=== PATIENT | male | born 1965 | race African-American/Black ===

== ENCOUNTER 2017-09-27 13:30 | Inpatient (IN) | payer SELFPAY ==
[2017-09-27] MEDS ORDERED: IBUPROFEN 600 MG TABLET PO ONE (16:00)
--- NOTE | 2017-09-27 16:05 | ER Document Report ---
ED Hand/Wrist Injury - General Chief Complaint: Hand Swelling Stated Complaint: LEFT HAND PAIN Time Seen by Provider: 09/27/17 15:45 Mode of Arrival: Ambulatory Information source: Patient Notes: 51-year-old male presented ED for complaint of left hand pain and swelling for the last 3 days. He states he does not remember any injuries but the pain is gradually become more and more painful. 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 He denies any history of arthritis or gout. States mother has arthritis but does not know of any family members with gout. He is alert and oriented pupils equal and react to light, speaks with a even full sentences. Walks with a even steady gait. TRAVEL OUTSIDE OF THE [place] IN LAST 30 DAYS: No - HPI Injury to: Hand, Index finger, Middle finger Onset: Other - 3 days Timing: Still present, Worse Quality of pain: Sharp, Throbbing Severity: Moderate Pain Level: 4 Context: Swelling, Other - Patient denies any injury - Related Data Allergies/Adverse Reactions: No Known Allergies Allergy (Verified 04/16/15 12:49) Past Medical History - General Information source: Patient - Social History Smoking Status: Current Every Day Smoker Cigarette use (# per day): Yes - 1/2 ppd Chew tobacco use (# tins/day): No Smoking Education Provided: Yes - 4 min Frequency of alcohol use: Social Drug Abuse: None Occupation: Construction Lives with: Family - Brother Family History: Reviewed & Not Pertinent Patient has suicidal ideation: No Patient has homicidal ideation: No - Past Medical History Cardiac Medical History: Reports: Hx Hypertension Pulmonary Medical History: Reports: None EENT Medical History: Reports: None Neurological Medical History: Reports: None Endocrine Medical History: Reports: None Renal/ Medical History: Reports: None Malignancy Medical History: Reports None GI Medical History: Reports: None Musculoskeltal Medical History: Reports Hx Musculoskeletal Trauma Skin Medical History: Reports None Psychiatric Medical History: Reports: None Traumatic Medical History: Reports: None Infectious Medical History: Reports: None Past Surgical History: Reports: Hx Orthopedic Surgery - left knee - Immunizations Immunizations up to date: Yes Hx Diphtheria, Pertussis, Tetanus Vaccination: Yes Review of Systems - Review of Systems Constitutional: No symptoms reported EENT: No symptoms reported Cardiovascular: No symptoms reported Respiratory: No symptoms reported Gastrointestinal: No symptoms reported Genitourinary: No symptoms reported Male Genitourinary: No symptoms reported Musculoskeletal: Other - Left hand pain pain swelling and warmth Skin: No symptoms reported Hematologic/Lymphatic: No symptoms reported Neurological/Psychological: No symptoms reported -: Yes All other systems reviewed and negative Physical Exam - Vital signs Vitals: Temp Pulse Resp BP Pulse Ox 98.8 F 69 17 179/92 H 96 09/27/17 13:48 09/27/17 13:48 09/27/17 13:48 09/27/17 13:48 09/27/17 13:48 Interpretation: Normal - General General appearance: Appears well, Alert - HEENT Head: Normocephalic, Atraumatic Eyes: Normal Pupils: PERRL - Respiratory Respiratory status: No respiratory distress Chest status: Nontender Breath sounds: Normal Chest palpation: Normal - Cardiovascular Rhythm: Regular Heart sounds: Normal auscultation Murmur: No - Abdominal Inspection: Normal Distension: No distension Bowel sounds: Normal Tenderness: Nontender Organomegaly: No organomegaly - Back Back: Normal, Nontender - Extremities General upper extremity: Normal temperature General lower extremity: Normal inspection, Nontender, Normal color, Normal ROM , Normal temperature, Normal weight bearing. No: Yoni's sign Hand: Tender, No evidence of human bite, No evidence of FB, Swelling, Other - Tenderness warm erythematous second and third Mcp - Neurological Neuro grossly intact: Yes Cognition: Normal Orientation: AAOx4 [place] Coma Scale Eye Opening: Spontaneous [place] Coma Scale Verbal: Oriented [place] Coma Scale Motor: Obeys Commands [place] Coma Scale Total: 15 Speech: Normal Motor strength normal: LUE, RUE, LLE, RLE Sensory: Normal - Psychological Associated symptoms: Normal affect, Normal mood - Skin Skin Temperature: Warm Skin Moisture: Dry Skin Color: Normal Course - Re-evaluation Re-evalutation: 09/27/17 16:28 X-ray done of the left hand due to the redness swelling and pain to the hand. Patient states he did not injure the hand he remembers no puncture wounds remembers no insect bites. X-ray does show a possible osteomyelitis of the second MCP according to the radiologist Dr. Ruff. Will obtain blood work cultures and then consult with orthopedics. 09/27/17 18:[address] Alvarado for the possible osteomyelitis of the second metacarpal of the left hand. He states this is not a simple injury infection osteomyelitis and this would need to be worked up by the hospitalist. He recommended starting the patient on Rocephin and vancomycin and get an MRI with contrast of the hand and to admit the patient to hospitalist. Dr. Forrester he states he will come to the ER and see the patient. - Vital Signs Vital signs: Temp Pulse Resp BP Pulse Ox 98.8 F 69 17 179/92 H 96 09/27/17 13:48 09/27/17 13:48 09/27/17 13:48 09/27/17 13:48 09/27/17 13:48 - Laboratory Result Diagrams: 09/27/17 16:35 09/27/17 16:35 Laboratory results interpreted by me: 09/27/17 09/27/17 16:35 16:35 MCV 98 H RDW 14.4 H Sodium 146.7 H Creatinine 1.27 H Direct Bilirubin 0.5 H ALT 16 L C-Reactive Protein 17.0 H - Diagnostic Test Radiology reviewed: Image reviewed, Reports reviewed - [facility] Time consulted: 18:45 Reason for consultation: 09/27/17 18:45 Hospital osteomyelitis to the right second metacarpal Consulted provider: will come to ER Discharge - Discharge Clinical Impression: Osteomyelitis left second metacarpal Disposition: ADMITTED INPATIENT Admitting [facility]: Medical Floor
--- NOTE | 2017-09-27 16:26 | RADIOLOGY REPORT (SQ) ---
EXAM DESCRIPTION: HAND LEFT 3 VIEWS COMPLETED DATE/TIME: 09/27/2017 4:12 pm REASON FOR STUDY: pain to left 2nd and 3rd knuck and metacarpal Patient states no trauma, pain and swelling of the left hand for 48 hours. COMPARISON: None. EXAM PARAMETERS: NUMBER OF VIEWS: Three views. TECHNIQUE: AP, lateral and oblique radiographic images acquired of the left hand. LIMITATIONS: None. FINDINGS: MINERALIZATION: Normal. BONES: The dorsal half of the 2nd metacarpal head is abnormal. There is irregular bony resorption an d sclerosis with periosteal new bone formation. Findings are worrisome for osteomyelitis, possibly f rom puncture wound. Underlying bone tumor could not entirely be excluded. JOINTS: No effusions. SOFT TISSUES: Diffuse dorsal left hand soft tissue swelling. No soft tissue gas. No foreign body. OTHER: Findings discussed with Brianna Mclain in the emergency room. IMPRESSION: Dorsal half of the 2nd metacarpal head is diffusely abnormal, with a permeative lytic pa ttern and adjacent periosteal new bone formation. Findings are worrisome for osteomyelitis related t o puncture wound. Overlying soft tissue swelling dorsal hand without radiopaque foreign body or soft tissue gas. TECHNICAL DOCUMENTATION: JOB ID: [id number] [employer]- All Rights Reserved Reading location - IP/workstation name: [email or web address]
[2017-09-27 16:59] LABS: ABSOLUTE BASOPHILS # (AUTO) 0.1 10^3/uL (0.0-0.2); ABSOLUTE EOSINOPHILS # (AUTO) 0.1 10^3/uL (0.0-0.6); ABSOLUTE LYMPHOCYTES (AUTO) 1.7 10^3/uL (0.5-4.7); ABSOLUTE MONOCYTES (AUTO) 0.7 10^3/uL (0.1-1.4); ABSOLUTE NEUT (AUTO) 5.8 10^3/uL (1.7-8.2); BASOPHILS % (AUTO) 1.1 % (0-2); EOSINOPHILS % (AUTO) 1.4 % (0-6); HEMATOCRIT 47.7 % (37.9-51.0); LYMPHOCYTES % (AUTO) 20.3 % (13-45); MEAN CORPUSCULAR HEMOGLOBIN 32.9 pg (27.0-33.4); MEAN CORPUSCULAR HGB CONC 33.6 g/dL (32.0-36.0); MEAN CORPUSCULAR VOLUME 98 fl (80-97); MONOCYTES % (AUTO) 7.9 % (3-13); PLATELET COUNT 257 10^3/uL (150-450); RED BLOOD COUNT 4.87 10^6/uL (4.35-5.55); RED CELL DISTRIBUTION WIDTH 14.4 % (11.5-14.0); SEGMENTED NEUTROPHILS % (AUTO) 69.3 % (42-78); TOTAL CELLS COUNTED % (AUTO) 100 %; WHITE BLOOD COUNT 8.3 10^3/uL (4.0-10.5)
[2017-09-27 17:21] LABS: ALANINE AMINOTRANSFERASE 16 U/L (21-72); ALBUMIN 4.3 g/dL (3.5-5.0); ALKALINE PHOSPHATASE 70 U/L (38-126); ANION GAP 14 (5-19); ASPARTATE AMINO TRANSFERASE 27 U/L (17-59); BILIRUBIN,DIRECT 0.5 mg/dL (0.0-0.4); BILIRUBIN,TOTAL 0.5 mg/dL (0.2-1.3); BLOOD UREA NITROGEN 19 mg/dL (7-20); CALCIUM 9.8 mg/dL (8.4-10.2); CARBON DIOXIDE 29 mmol/L (22-30); CHLORIDE 104 mmol/L (98-107); GLUCOSE 97 mg/dL (75-110); POTASSIUM 4.4 mmol/L (3.6-5.0); SODIUM 146.7 mmol/L (137-145); TOTAL PROTEIN 7.5 g/dL (6.3-8.2)
[2017-09-27 17:44] LABS: ERYTHROCYTE SEDIMENTATION RATE 13 mm/hr (0-20)
[2017-09-27] MEDS ORDERED: VANCOMYCIN HCL INJ 1000 MG VIAL IV ONE (18:37)
[2017-09-27] MEDS ORDERED: CEFTRIAXONE 1 GM/D5W RTU 1 GM/50 ML RTUPB IV ONE (18:37)
[2017-09-27] MEDS ORDERED: OXYCODONE-ACETAMINOPHEN 5-325 MG TABLET PO PRN (19:11)
[2017-09-27] MEDS ORDERED: ACETAMINOPHEN 325 MG TABLET PO PRN (19:11)
[2017-09-27] MEDS ORDERED: PROMETHAZINE HCL 25 MG TABLET PO PRN (19:11)
[2017-09-27] MEDS ORDERED: VANCOMYCIN HCL 0 MG in DEXTROSE 5%-WATER 250 ML IV NR (19:15)
--- NOTE | 2017-09-27 19:54 | PDOC H&P ---
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 Patient does not remember any injury to his involved hand. He denies fever, chills, cough, chest pain, nausea, vomiting or abdominal pain. X-ray of the left hand shows lytic lesions and new periosteal bone formation which is suspicious for osteomyelitis. Patient does not have other significant medical problems. Patient has been started empirically on vancomycin and cefepime and he will have MRI of the left hand in a am, Past Medical History Cardiac Medical History: Reports: Hypertension Pulmonary Medical History: Reports: None EENT Medical History: Reports: None Neurological Medical History: Reports: None Endocrine Medical History: Reports: None Denies: Diabetes Mellitus Type 2 Renal/ Medical History: Reports: None Malignancy Medical History: Reports: None GI Medical History: Reports: None Skin Medical History: Reports: None Psychiatric Medical History: Reports: None Denies: Depression Traumatic Medical History: Reports: None Infectious Medical History: Reports: None Past Surgical History Past Surgical History: Reports: Orthopedic Surgery - left knee Social History Lives with: Family - Brother Smoking Status: Current Every Day Smoker Frequency of Alcohol Use: Social Hx Recreational Drug Use: No Drugs: Marijuana Hx Prescription Drug Abuse: No - Advance Directive Resuscitation Status: Full Code Family History Family History: Reviewed & Not Pertinent Parental Family History Reviewed: Yes Children Family History Reviewed: Yes Sibling(s) Family History Reviewed.: Yes Medication/Allergy Home Medications: Amlodipine Besylate [Norvasc 10 mg Tablet] 10 mg PO DAILY 09/27/17 Atenolol [Tenormin 50 mg Tablet] 50 mg PO DAILY 09/27/17 Hydrochlorothiazide [Hydrodiuril 25 mg Tablet] 25 mg PO DAILY 09/27/17 Lisinopril [Prinivil] 20 mg PO DAILY 09/27/17 Allergies/Adverse Reactions: No Known Allergies Allergy (Verified 04/16/15 12:49) Review of Systems Constitutional: ABSENT: chills, fever(s), headache(s), weight gain, weight loss Eyes: ABSENT: visual disturbances Cardiovascular: ABSENT: chest pain, dyspnea on exertion, edema, orthropnea, palpitations Respiratory: ABSENT: cough, hemoptysis Gastrointestinal: ABSENT: abdominal pain, constipation, diarrhea, hematemesis, hematochezia, nausea, vomiting Neurological: ABSENT: abnormal gait, abnormal speech, confusion, dizziness, focal weakness, syncope Psychiatric: ABSENT: anxiety, depression, homidical ideation, suicidal ideation Physical Exam Vital Signs: Temp Pulse Resp BP Pulse Ox 98.8 F 69 17 179/92 H 96 09/27/17 13:48 09/27/17 13:48 09/27/17 13:48 09/27/17 13:48 09/27/17 13:48 General appearance: PRESENT: no acute distress Head exam: PRESENT: atraumatic, normocephalic Respiratory exam: PRESENT: accessory muscle use Cardiovascular exam: PRESENT: RRR. ABSENT: diastolic murmur, rubs, systolic murmur GI/Abdominal exam: PRESENT: normal bowel sounds, soft. ABSENT: distended, guarding, mass, organolmegaly, rebound, tenderness Extremities exam: PRESENT: other - This tenderness and swelling at the metacarpophalangeal joint of the left index finger Neurological exam: PRESENT: alert, awake, oriented to person, oriented to place , oriented to time, oriented to situation, CN II-XII grossly intact. ABSENT: motor sensory deficit Psychiatric exam: PRESENT: appropriate affect, normal mood. ABSENT: homicidal ideation, suicidal ideation Results Impressions: Hand X-Ray 09/27/17 15:58 IMPRESSION: Dorsal half of the 2nd metacarpal head is diffusely abnormal, with a permeative lytic pattern and adjacent periosteal new bone formation. Findings are worrisome for osteomyelitis related to puncture wound. Overlying soft tissue swelling dorsal hand without radiopaque foreign body or soft tissue gas. Assessment & Plan - Diagnosis (1) Hand osteomyelitis, left Qualifiers: Osteomyelitis type: unspecified type Qualified Code(s): M86.9 - Osteomyelitis, unspecified Is this a current diagnosis for this admission?: Yes Plan: Patient has been started empirically on vancomycin and cefepime. MRI, C-reactive protein and ESR are requested (2) Hypertension Qualifiers: Hypertension type: essential hypertension Qualified Code(s): I10 - Essential (primary) hypertension Is this a current diagnosis for this admission?: Yes Plan: Continue home medication - Time Time Spent: 30 to 50 Minutes - Inpatient Certification Medical Necessity: Significant Comorbidiites Make Outpatient Treatment Too Risky , Need For IV Fluids, Need for IV Antibiotics
[2017-09-28] MEDS ORDERED: METOPROLOL TARTRATE 50 MG TABLET PO ONE (00:30)
[2017-09-28] MEDS ORDERED: HYDRALAZINE HCL 50 MG TABLET PO ONE (00:30)
--- NOTE | 2017-09-28 00:47 | RADIOLOGY REPORT (SQ) ---
EXAM DESCRIPTION: MRI left UPPER EXTREMITY WITHOUT THEN WITH IV CONTRAST CLINICAL HISTORY: 51 years Male, left hand pain swelling possible osteomyeolitis Comparison: None. Technique: 20 mL ProHance IV gadolinium conventional pre and postcontrast MRI of the left hand. LIMITATIONS: None. Findings: Abnormal right second metacarpal head and distal metacarpal shaft include two, 0.6 cm chronic erosion/cloaca at the dorsomedial right second metacarpal head, mild edema and enhancement of the distal second metatarsal carpal diametaphysis, and moderate surrounding soft tissue swelling/involucrum. There is mild nonspecific increased signal of the left first and second phalanges predominantly due to fat saturation artifact. Moderate edema and swelling of the lateral and mid left hand. IMPRESSION: Osteomyelitis pattern of the right second metacarpal head.
[2017-09-28] MEDS ORDERED: VANCOMYCIN HCL 1,250 MG in DEXTROSE 5%-WATER 250 ML IV SCH (02:00)
[2017-09-28 04:46] LABS: ABSOLUTE BASOPHILS # (AUTO) 0.1 10^3/uL (0.0-0.2); ABSOLUTE EOSINOPHILS # (AUTO) 0.1 10^3/uL (0.0-0.6); ABSOLUTE LYMPHOCYTES (AUTO) 1.7 10^3/uL (0.5-4.7); ABSOLUTE MONOCYTES (AUTO) 0.8 10^3/uL (0.1-1.4); BASOPHILS % (AUTO) 0.7 % (0-2); EOSINOPHILS % (AUTO) 1.6 % (0-6); HEMATOCRIT 46.6 % (37.9-51.0); HEMOGLOBIN 15.6 g/dL (13.5-17.0); LYMPHOCYTES % (AUTO) 22.3 % (13-45); MEAN CORPUSCULAR HEMOGLOBIN 32.9 pg (27.0-33.4); MEAN CORPUSCULAR HGB CONC 33.6 g/dL (32.0-36.0); MEAN CORPUSCULAR VOLUME 98 fl (80-97); MONOCYTES % (AUTO) 10.2 % (3-13); PLATELET COUNT 202 10^3/uL (150-450); RED BLOOD COUNT 4.75 10^6/uL (4.35-5.55); RED CELL DISTRIBUTION WIDTH 14.1 % (11.5-14.0); SEGMENTED NEUTROPHILS % (AUTO) 65.2 % (42-78); TOTAL CELLS COUNTED % (AUTO) 100 %; WHITE BLOOD COUNT 7.6 10^3/uL (4.0-10.5)
[2017-09-28] MEDS: LANSOPRAZOLE 30 MG TAB.RAP.DR PO SCH (05:03)
[2017-09-28 05:17] LABS: ANION GAP 13 (5-19); BLOOD UREA NITROGEN 18 mg/dL (7-20); C-REACTIVE PROTEIN 39.9 mg/L (<10.0); CALCIUM 9.7 mg/dL (8.4-10.2); CARBON DIOXIDE 27 mmol/L (22-30); CHLORIDE 102 mmol/L (98-107); GLUCOSE 131 mg/dL (75-110); POTASSIUM 3.9 mmol/L (3.6-5.0); SODIUM 141.5 mmol/L (137-145)
[2017-09-28 05:31] LABS: ERYTHROCYTE SEDIMENTATION RATE 11 mm/hr (0-20)
[2017-09-28] MEDS ORDERED: HYDRALAZINE HCL 50 MG TABLET PO SCH (06:00)
[2017-09-28] MEDS ORDERED: CEFEPIME 2 GM/D5W RTU 2 GM/50 ML RTUPB IV SCH (06:00)
[2017-09-28] MEDS ORDERED: DEXTROSE 50%-WATER 25 GM/50 ML DISP.SYRIN IV PRN ×2 (07:27)
[2017-09-28] MEDS ORDERED: DEXTROSE 40% GEL 15 GM TUBE PO PRN ×2 (07:27)
[2017-09-28] MEDS ORDERED: GLUCAGON,HUMAN RECOMB 1 MG INJ SUBCUT PRN (07:27)
[2017-09-28] MEDS ORDERED: LIDOCAINE 2% INJ-PF (20 MG/ML) 2 ML AMPUL ONE (07:54)
[2017-09-28] MEDS ORDERED: METOCLOPRAMIDE HCL INJ/PF 10 MG/2 ML SDV ONE (07:54)
[2017-09-28] MEDS ORDERED: GLYCOPYRROLATE INJ 0.4 MG/2 ML VIAL ONE (07:54)
[2017-09-28] MEDS ORDERED: DEXAMETHASONE SOD PHOSPHATE INJ 4 MG/1 ML VIAL ONE (07:54)
[2017-09-28] MEDS ORDERED: ONDANSETRON HCL INJ/PF 4 MG/2 ML SDV ONE (07:54)
[2017-09-28] MEDS ORDERED: KETOROLAC TROMETHAMINE 60 MG/2 ML SDV ONE (07:54)
[2017-09-28] MEDS ORDERED: OXYCODONE-ACETAMINOPHEN 5-325 MG TABLET PO PRN ×2 (09:24)
[2017-09-28] MEDS ORDERED: VANCOMYCIN HCL 0 MG in DEXTROSE 5%-WATER 250 ML IV NR (09:30)
--- NOTE | 2017-09-28 09:52 | PDOC CONSULTATION ---
History of Present Illness Admission Date/PCP: 09/27/17 19:19 Patient complains of: Left hand pain History of Present Illness: CELESTE GIRER is a 51 year old male who presents to emergency room with pain and swelling in his left hand. He noticed over the past week and especially the past 2 days increasing pain and swelling of the hand. He does note hitting the hand a few weeks ago but denies trauma otherwise. Never had an open wound cut bite along the region. Denies history of gout or inflammatory arthropathy. Patient works as a construction accountant and prior to the past 7 days has been using his hand regularly. Denies other complaints. Denies chest pain or shortness of breath. Denies history of arthralgias. Denies fever chills or sweats. Denies history of international travel. Current pain 07/17. Past Medical History Cardiac Medical History: Reports: Hypertension Pulmonary Medical History: Reports: None EENT Medical History: Reports: None Neurological Medical History: Reports: None Endocrine Medical History: Reports: None Denies: Diabetes Mellitus Type 2 Renal/ Medical History: Reports: None Malignancy Medical History: Reports: None GI Medical History: Reports: None Skin Medical History: Reports: None Psychiatric Medical History: Reports: None Denies: Depression Traumatic Medical History: Reports: None Infectious Medical History: Reports: None Past Surgical History Past Surgical History: Reports: Orthopedic Surgery - left knee Social History Lives with: Family - Brother Smoking Status: Current Every Day Smoker Frequency of Alcohol Use: Social Hx Recreational Drug Use: Yes Drugs: Marijuana Hx Prescription Drug Abuse: No - Advance Directive Resuscitation Status: Full Code Family History Family History: Reviewed & Not Pertinent Parental Family History Reviewed: No Children Family History Reviewed: No Sibling(s) Family History Reviewed.: No Medication/Allergy Home Medications: Amlodipine Besylate [Norvasc 10 mg Tablet] 10 mg PO DAILY 09/27/17 Atenolol [Tenormin 50 mg Tablet] 50 mg PO DAILY 09/27/17 Hydrochlorothiazide [Hydrodiuril 25 mg Tablet] 25 mg PO DAILY 09/27/17 Lisinopril [Prinivil] 20 mg PO DAILY 09/27/17 Allergies/Adverse Reactions: No Known Allergies Allergy (Verified 04/16/15 12:49) Review of Systems Constitutional: ABSENT: chills, fever(s), headache(s), weight gain, weight loss Eyes: ABSENT: visual disturbances Ears: ABSENT: hearing changes Cardiovascular: ABSENT: chest pain, dyspnea on exertion, edema, orthropnea, palpitations Respiratory: ABSENT: cough, hemoptysis Gastrointestinal: ABSENT: abdominal pain, constipation, diarrhea, hematemesis, hematochezia, nausea, vomiting Genitourinary: ABSENT: dysuria, hematuria Musculoskeletal: PRESENT: as per HPI Integumentary: ABSENT: rash, wounds Neurological: ABSENT: abnormal gait, abnormal speech, confusion, dizziness, focal weakness, syncope Psychiatric: ABSENT: anxiety, depression, homidical ideation, suicidal ideation Endocrine: ABSENT: cold intolerance, heat intolerance, menstrual abnormalities, polydipsia, polyuria Hematologic/Lymphatic: ABSENT: easy bleeding, easy bruising, lymphadenopathy Physical Exam Vital Signs: Temp Pulse Resp BP Pulse Ox 97.3 F 70 20 194/112 H 100 09/28/17 07:58 09/28/17 07:58 09/28/17 07:58 09/28/17 07:58 09/28/17 07:58 Intake & Output 09/27/17 09/28/17 09/29/17 06:59 06:59 06:59 Intake Total 960 Balance 960 Weight 127.9 kg General appearance: PRESENT: no acute distress, well-developed, well-nourished Head exam: PRESENT: atraumatic, normocephalic Eye exam: PRESENT: conjunctiva pink, EOMI, PERRLA. ABSENT: scleral icterus Ear exam: PRESENT: normal external ear exam Mouth exam: PRESENT: moist, tongue midline Neck exam: PRESENT: full ROM. ABSENT: carotid bruit, JVD, lymphadenopathy, thyromegaly Cardiovascular exam: PRESENT: RRR. ABSENT: diastolic murmur, rubs, systolic murmur Pulses: PRESENT: normal dorsalis pedis pul, +2 pedal pulses bilateral Vascular exam: PRESENT: normal capillary refill GI/Abdominal exam: PRESENT: normal bowel sounds, soft. ABSENT: distended, guarding, mass, organolmegaly, rebound, tenderness Rectal exam: PRESENT: deferred Musculoskeletal exam: PRESENT: other - Left hand swelling and erythema centered dorsally along the index MCP joint. Tenderness to palpation. Crepitus with range of motion. Pain with forced terminal flexion and extension. Patient unable to make a full composite fist. No tenderness along the flexor sheath. No evidence of blistering or vesicles. No sensory deficits. No streaking or tracking erythema proximally. Neurological exam: PRESENT: alert, awake, oriented to person, oriented to place , oriented to time, oriented to situation, CN II-XII grossly intact. ABSENT: motor sensory deficit Psychiatric exam: PRESENT: appropriate affect, normal mood. ABSENT: homicidal ideation, suicidal ideation Skin exam: PRESENT: dry, intact, warm. ABSENT: cyanosis, rash Results Laboratory Results: 09/28/17 03:54 09/28/17 03:54 09/28/17 09/28/17 09/28/17 03:54 03:54 03:54 WBC 7.6 RBC 4.75 Hgb 15.6 Hct 46.6 MCV 98 H MCH 32.9 MCHC 33.6 RDW 14.1 H Plt Count 202 Seg Neutrophils % 65.2 Lymphocytes % 22.3 Monocytes % 10.2 Eosinophils % 1.6 Basophils % 0.7 Absolute Neutrophils 5.0 Absolute Lymphocytes 1.7 Absolute Monocytes 0.8 Absolute Eosinophils 0.1 Absolute Basophils 0.1 Sodium 141.5 Potassium 3.9 Chloride 102 Carbon Dioxide 27 Anion Gap 13 BUN 18 Creatinine 1.07 Est GFR ( Amer) > 60 Est GFR (Non-Af Amer) > 60 Glucose 131 H Uric Acid 6.1 Calcium 9.7 C-Reactive Protein 39.9 H Impressions: Hand X-Ray 09/27/17 15:58 IMPRESSION: Dorsal half of the 2nd metacarpal head is diffusely abnormal, with a permeative lytic pattern and adjacent periosteal new bone formation. Findings are worrisome for osteomyelitis related to puncture wound. Overlying soft tissue swelling dorsal hand without radiopaque foreign body or soft tissue gas. Upper Extremity MRI 09/27/17 18:38 IMPRESSION: Osteomyelitis pattern of the right second metacarpal head. Status: Image reviewed by me - I have reviewed patient's radiographs and MRI which demonstrate degeneration of the index metacarpal head with evidence of erosion and soft tissue swelling questionable osteomyelitis. Assessment & Plan - Diagnosis (1) Hand osteomyelitis, left Qualifiers: Osteomyelitis type: unspecified type Qualified Code(s): M86.9 - Osteomyelitis, unspecified Is this a current diagnosis for this admission?: Yes Plan: Currently working diagnosis is osteomyelitis of the second metacarpal head however he has no significant history to indicate because of osteomyelitis has never had surgery injury or open wound in this region. Furthermore his discomfort is vague and not exquisite to indicate acute infection. Thus other etiologies besides osteomyelitis include inflammatory arthropathy versus malignancy. Patient has been started empirically on IV antibiotics and will hold antibiotics for now and I have recommended proceeding with operative intervention which includes irrigation debridement and biopsy of the second metacarpal head. Risks and benefits of the surgical procedure have been explained to the patient patient has verbalized understanding consented for the procedure.
[2017-09-28] MEDS: ATENOLOL 50 MG TABLET PO SCH (09:59)
[2017-09-28] MEDS: HYDRALAZINE HCL INJ/PF 20 MG/1 ML SDV IV PRN ×2 (09:59→14:32)
[2017-09-28] MEDS: HYDROCHLOROTHIAZIDE 25 MG TABLET PO SCH (09:59)
[2017-09-28] MEDS: LISINOPRIL 10 MG TABLET PO SCH (09:59)
[2017-09-28] MEDS: AMLODIPINE BESYLATE 10 MG TABLET PO SCH (09:59)
[2017-09-28] MEDS ORDERED: ENOXAPARIN SODIUM INJ 40 MG/0.4 ML DISP.SYRIN SUBCUT SCH (10:00)
[2017-09-28] MEDS ORDERED: (PENDING PHARMACY ID) (Lisinopril [Prinivil] 20 MG) PO SCH (10:00)
[2017-09-28] MEDS ORDERED: METOPROLOL TARTRATE 50 MG TABLET PO SCH (10:00)
[2017-09-28] MEDS: VANCOMYCIN HCL 1,500 MG in DEXTROSE 5%-WATER 250 ML IV SCH ×2 (11:07→21:09)
--- NOTE | 2017-09-28 13:30 | EKG REPORT ---
SEVERITY:- ABNORMAL ECG - SINUS RHYTHM NELI, CONSIDER BIATRIAL ABNORMALITIES BORDERLINE PROLONGED QT INTERVAL CONSIDER OLD ANTEROSEPTAL LA, CLINICAL CORRELATION NEEDED. : Confirmed by: Reynold Sewell MD 28-Sep-2017 13:29:31
[2017-09-28] MEDS ORDERED: BACITRACIN INJ 50,000 UNIT VIAL ONE (13:33)
[2017-09-28] MEDS ORDERED: FENTANYL CITRATE INJ/PF 100 MCG/2 ML AMPUL ONE (16:29)
[2017-09-28] MEDS ORDERED: MIDAZOLAM 2 MG/2 ML INJ ONE (16:29)
[2017-09-28] MEDS ORDERED: EPHEDRINE SULFATE INJ 50 MG/1 ML AMPULE ONE (16:29)
[2017-09-28] MEDS ORDERED: KETAMINE HCL INJ 500 MG/10 ML VIAL ONE (16:29)
[2017-09-28] MEDS ORDERED: PROPOFOL INJ 200 MG/20 ML VIAL IV ONE ×2 (16:30→17:50)
[2017-09-28] MEDS ORDERED: ACETAMINOPHEN 100 ML IV ONE (16:30)
[2017-09-28] MEDS ORDERED: LIDOCAINE 1% INJ-PF (10 MG/ML) 30 ML SDV ONE (16:46)
[2017-09-28] MEDS ORDERED: DIPHENHYDRAMINE HCL 50 MG/ML VIAL IV PRN (17:19)
[2017-09-28] MEDS ORDERED: MEPERIDINE HCL/PF INJ 25 MG/1 ML DISP.SYRIN IV PRN (17:19)
[2017-09-28] MEDS ORDERED: PROMETHAZINE HCL INJ 25 MG/1 ML VIAL IV PRN ×2 (17:19)
[2017-09-28] MEDS ORDERED: ONDANSETRON HCL INJ/PF 4 MG/2 ML SDV IV PRN (17:19)
[2017-09-28] MEDS ORDERED: FENTANYL CITRATE INJ/PF 100 MCG/2 ML AMPUL IV PRN ×3 (17:19)
--- NOTE | 2017-09-28 17:27 | PDOC PROGRESS REPORT ---
Subjective Progress Note for:: 09/28/17 Subjective:: The patient is a 51-year-old male with past medical history significant for hypertension who was admitted on 09/27/17 for swelling of the left hand. MRI revealed osteomyelitis of the second metacarpal. Orthopedics was consulted and plans for surgery today. Patient was seen on morning rounds. He is found resting in bed comfortably on room air. He reports continued left hand discomfort, especially when flexing fingers. He denies known injury. He denies fever, chills, chest pain, dyspnea , cough, abdominal pain, nausea and vomiting. He has no new questions or concerns. Reason For Visit: OSTEOMYELITIS Physical Exam Vital Signs: Temp Pulse Resp BP Pulse Ox 97.3 F 70 20 194/112 H 100 09/28/17 07:58 09/28/17 07:58 09/28/17 07:58 09/28/17 07:58 09/28/17 07:58 Intake & Output 09/27/17 09/28/17 09/29/17 06:59 06:59 06:59 Intake Total 960 Balance 960 Weight 127.9 kg General appearance: PRESENT: no acute distress, cooperative, obese, well- developed, well-nourished Head exam: PRESENT: atraumatic, normocephalic Eye exam: PRESENT: conjunctiva pink, EOMI, PERRLA. ABSENT: scleral icterus Ear exam: PRESENT: normal external ear exam Mouth exam: PRESENT: moist, tongue midline Neck exam: ABSENT: carotid bruit, JVD, lymphadenopathy, thyromegaly Respiratory exam: PRESENT: clear to auscultation rip, symmetrical, unlabored. ABSENT: rales, rhonchi, wheezes Cardiovascular exam: PRESENT: RRR, +S1, +S2. ABSENT: diastolic murmur, rubs, systolic murmur Pulses: PRESENT: normal dorsalis pedis pul Vascular exam: PRESENT: normal capillary refill GI/Abdominal exam: PRESENT: normal bowel sounds, soft. ABSENT: distended, guarding, mass, organolmegaly, rebound, tenderness Rectal exam: PRESENT: deferred Extremities exam: PRESENT: full ROM, tenderness, +1 edema - Dorsal aspect of left hand. ABSENT: calf tenderness, clubbing, pedal edema Neurological exam: PRESENT: alert, awake, oriented to person, oriented to place , oriented to time, oriented to situation, CN II-XII grossly intact. ABSENT: motor sensory deficit Psychiatric exam: PRESENT: appropriate affect, normal mood. ABSENT: homicidal ideation, suicidal ideation Skin exam: PRESENT: dry, intact, warm. ABSENT: cyanosis, rash Results Laboratory Results: 09/28/17 03:54 09/28/17 03:54 09/28/17 09/28/17 09/28/17 03:54 03:54 03:54 WBC 7.6 RBC 4.75 Hgb 15.6 Hct 46.6 MCV 98 H MCH 32.9 MCHC 33.6 RDW 14.1 H Plt Count 202 Seg Neutrophils % 65.2 Lymphocytes % 22.3 Monocytes % 10.2 Eosinophils % 1.6 Basophils % 0.7 Absolute Neutrophils 5.0 Absolute Lymphocytes 1.7 Absolute Monocytes 0.8 Absolute Eosinophils 0.1 Absolute Basophils 0.1 Sodium 141.5 Potassium 3.9 Chloride 102 Carbon Dioxide 27 Anion Gap 13 BUN 18 Creatinine 1.07 Est GFR ( Amer) > 60 Est GFR (Non-Af Amer) > 60 Glucose 131 H Uric Acid 6.1 Calcium 9.7 C-Reactive Protein 39.9 H Impressions: Hand X-Ray 09/27/17 15:58 IMPRESSION: Dorsal half of the 2nd metacarpal head is diffusely abnormal, with a permeative lytic pattern and adjacent periosteal new bone formation. Findings are worrisome for osteomyelitis related to puncture wound. Overlying soft tissue swelling dorsal hand without radiopaque foreign body or soft tissue gas. Upper Extremity MRI 09/27/17 18:38 IMPRESSION: Osteomyelitis pattern of the right second metacarpal head. Assessment & Plan - Diagnosis (1) Hand osteomyelitis, left Qualifiers: Osteomyelitis type: unspecified type Qualified Code(s): M86.9 - Osteomyelitis, unspecified Is this a current diagnosis for this admission?: Yes Plan: The patient presented with a complaint of 2 days of swelling and tenderness to the dorsal aspect of his left hand. 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 X-ray of the hand reveals dorsal half of the second metacarpal head is diffusely abnormal with lytic pattern suggestive for osteomyelitis related to a puncture wound. There is overlying soft tissue swelling without foreign body or soft tissue gas. MRI of the hand demonstrated osteomyelitis pattern of the right second metacarpal head. Blood cultures are negative at 24 hours. The patient is admitted to the medical floor. He is empirically placed on vancomycin; he did receive 1 dose of ceftriaxone while in the emergency department last night. Orthopedics is consulted; appreciate their evaluation and recommendations. Orthopedics plans to take the patient to the OR suite this afternoon. Antiemetics as needed. Oxycodone for pain as needed. (2) Hypertension Qualifiers: Hypertension type: essential hypertension Qualified Code(s): I10 - Essential (primary) hypertension Is this a current diagnosis for this admission?: Yes Plan: The patient has had hypertensive urgency with blood pressures of 194/112. His home medication regimen is resumed; amlodipine 10 mg daily, lisinopril 20 mg p.o. daily, atenolol 50 mg daily, and hydrochlorothiazide 25 mg daily. IV hydralazine as needed for blood pressure control. (3) Hyperglycemia Is this a current diagnosis for this admission?: Yes Plan: The patient was noted to have an elevated blood glucose of 131 on AM labs while fasting. He is noted to be obese and presents with osteomyelitis of the hand. I am concerned that he may have underlying diabetes mellitus and so will evaluate A1c with morning labs. (4) Obesity Qualifiers: Body mass index: BMI 37.0-37.9 Is this a current diagnosis for this admission?: Yes Plan: Will evaluate A1C and TSH with morning labs. Dietary discretion is advised. - Time Time Spent with patient: 15-24 minutes Medications reviewed and adjusted accordingly: Yes - Inpatient Certification Based on my medical assessment, after consideration of the patient's comorbidities, presenting symptoms, or acuity I expect that the services needed warrant INPATIENT care.: Yes I certify that my determination is in accordance with my understanding of Medicare's requirements for reasonable and necessary INPATIENT services [42 CFR 412.3e].: Yes Medical Necessity: Need for IV Antibiotics, Need for Surgery
--- NOTE | 2017-09-28 18:07 | Operative Report ---
Operative Report DATE OF SURGERY: 09/28/17 PREOPERATIVE DIAGNOSIS: Bone Lesion Left 2nd Metacarpal Head POSTOPERATIVE DIAGNOSIS: Same OPERATION: Irrigation and excisional debridement left second metacarpal head with excision nonviable tissue and bone biopsy. SURGEON: PHYLLIS CHANDLER TISSUE REMOVED OR ALTERED: Bone left second metacarpal head sent to pathology and micro for aerobic/anaerobic, AFB and fungal COMPLICATIONS: None ESTIMATED BLOOD LOSS: Minimal PROCEDURE: Indication for above procedure: 51-year-old male who presented to the hospital with redness swelling and pain in his left hand. Patient had MRI and radiographs demonstrating concerns of possible osteomyelitis. Given the vague nature of patient's symptoms decision was made to proceed with operative intervention which includes irrigation debridement left hand with bone biopsy. Risks and benefits were explained to the patient patient verbalized understanding consented for the procedure. Procedure In Detail: Patient was seen and evaluated in the preoperative holding area. The LEFT upper extremity was initialized and marked. Patient received 2g of Ancef IV for bacterial prophylaxis. Patient was taken back to the operative room where transferred to the operative table and placed under general anesthesia. Once they were adequately anesthetized a nonsterile tourniquet was placed on the upper extremity. A surgical team debriefing was performed ensuring all instrumentation was available, the surgical procedure was discussed with possible concerns reviewed. Local block was performed utilizing 10 cc of 1% lidocaine without epinephrine the upper extremity was prepped with chlorhexidine and alcohol and draped in a sterile fashion. A timeout was done identifying correct patient, procedure and extremity everyone in attendance agree with this and verbalized no concerns. The extremity was elevated the tourniquet was inflated to 250 mmHg. Curvilinear skin incision was made in a radial direction. Blunt dissection was performed. Branches the superficial radial nerve were identified and retracted. The extensor mechanism was opened along its radial border and the capsule incised. There was clear appearing fluid within the MCP joint no evidence of purulence. Intra-articular was evidence of synovitis. Swab cultures were obtained along with tissue culture sent for aerobic, anaerobic AFB and fungal. Partial synovectomy of the MP joint was performed. Inspection of the bone demonstrated chondral defect along its ulnar border. Along its ulnar aspect there was softening of the metacarpal head and thus a curette was utilized to make a cortical window proximal to the articular surface. From the cortical window, bone was excised utilizing a curette and rongeur. Gelatinous appearing tissue was obtained from the defect but no gross purulence appreciated. Adequate amount of bone was sent for pathology micro for further diagnosis. The wound was then copiously irrigated with normal saline. The capsule was closed with interrupted 3-0 Vicryl suture. Extensor mechanism closed with 3-0 Vicryl suture. Tourniquet was then deflated. Any peripheral bleeding was coagulated bipolar cautery or tied off with Vicryl suture until the wound was dry. Once adequate hemostasis was obtained the wound was once again irrigated. Skin was closed with interrupted 4-0 nylon suture. Patient was placed in a soft dressing. Sponge counts, instrument counts, needle counts counts were correct. Patient was then awoken from anesthesia. Transferred from the operating room table to the operating room stretcher. There was no intraoperative complications patient tolerated procedure well stable to PACU. Postoperative plan: We will start patient's antibiotics prophylactically and await culture and tissue results. Given the lack of purulence and questionable nature of patient' s laboratory findings I feel patient is stable for discharge to home likely tomorrow but will follow-up the office with me in 7 days to review results.
[2017-09-29] MEDS: VANCOMYCIN HCL 1,500 MG in DEXTROSE 5%-WATER 250 ML IV SCH (04:22)
[2017-09-29] MEDS: LANSOPRAZOLE 30 MG TAB.RAP.DR PO SCH (05:12)
[2017-09-29 07:28] LABS: HEMATOCRIT 48.7 % (37.9-51.0); HEMOGLOBIN 16.4 g/dL (13.5-17.0); MEAN CORPUSCULAR HEMOGLOBIN 32.7 pg (27.0-33.4); MEAN CORPUSCULAR HGB CONC 33.7 g/dL (32.0-36.0); MEAN CORPUSCULAR VOLUME 97 fl (80-97); PLATELET COUNT 261 10^3/uL (150-450); RED BLOOD COUNT 5.02 10^6/uL (4.35-5.55); RED CELL DISTRIBUTION WIDTH 14.3 % (11.5-14.0); WHITE BLOOD COUNT 10.1 10^3/uL (4.0-10.5)
[2017-09-29 07:55] LABS: ANION GAP 14 (5-19); BLOOD UREA NITROGEN 27 mg/dL (7-20); CALCIUM 9.7 mg/dL (8.4-10.2); CARBON DIOXIDE 25 mmol/L (22-30); CHLORIDE 99 mmol/L (98-107); GLUCOSE 144 mg/dL (75-110); POTASSIUM 4.5 mmol/L (3.6-5.0); SODIUM 137.7 mmol/L (137-145)
[2017-09-29] MEDS ORDERED: NORMAL SALINE 1000 ML 1,000 ML IV PRN (09:31)
[2017-09-29] MEDS ORDERED: CEFTRIAXONE 1 GM/D5W RTU 1 GM/50 ML RTUPB IV SCH (10:00)
[2017-09-29] MEDS ORDERED: CEFTRIAXONE SODIUM 1,000 MG in DEXTROSE 5%-WATER 50 ML IV SCH (10:00)
[2017-09-29] MEDS: HYDROCHLOROTHIAZIDE 25 MG TABLET PO SCH (10:05)
[2017-09-29] MEDS: ATENOLOL 50 MG TABLET PO SCH (10:06)
[2017-09-29] MEDS: AMLODIPINE BESYLATE 10 MG TABLET PO SCH (10:06)
[2017-09-29] MEDS: LISINOPRIL 10 MG TABLET PO SCH (10:06)
[2017-09-29 12:38] LABS: ANTICHROMATIN AB <0.2 AI (0.0-0.9); CENTROMERE B AB <0.2 AI (0.0-0.9); JO-1 ANTIBODY (ANACOMP) <0.2 AI (0.0-0.9); RNP AB <0.2 AI (0.0-0.9); SCLERODERMA-70 ANTIBODIES <0.2 AI (0.0-0.9); SJOGREN'S ANTI-SS-B AB <0.2 AI (0.0-0.9); SJOGREN'S SS-A ANTIBODY <0.2 AI (0.0-0.9); SMITH AB ANA <0.2 AI (0.0-0.9)
[2017-09-29 12:47] LABS: VANCOMYCIN,TROUGH 21.2 ug/mL (5.0-20.0)
[2017-09-29 13:03] LABS: DNA DOUBLE STRAND ANTIBODY ANA <1 IU/mL (0-9)
[2017-09-29 15:51] VITALS: BP 143/72
--- NOTE | 2017-09-29 17:17 | PDOC DISCHARGE SUMMARY ---
General - Admit/Disc Date/PCP Admission Date/Primary Care Provider: 09/27/17 19:19 Discharge Date: 09/29/17 - Discharge Diagnosis (1) Bone lesion Is this a current diagnosis for this admission?: Yes (2) Hypertension Is this a current diagnosis for this admission?: Yes Summary: Controlled with home medication regiment. (3) Hyperglycemia Is this a current diagnosis for this admission?: Yes Summary: A1c 5.8% (4) Obesity Is this a current diagnosis for this admission?: Yes Summary: TSH 0.53 - Additional Information Resuscitation Status: Full Code Discharge Diet: Regular Discharge Activity: No Driving, No Lifting Over 10 Pounds, No Lifting/Push/ Pulling Prescriptions: Amoxicillin/Potassium Clav [Augmentin 500-125 Tablet] 1 each PO TID #30 tablet Docusate Sodium [Colace] 100 mg PO BIDP PRN #30 capsule PRN Reason: Oxycodone HCl/Acetaminophen [Percocet 5-325 mg Tablet] 1 tab PO Q4HP PRN #20 tablet PRN Reason: Home Medications: Amlodipine Besylate [Norvasc 10 mg Tablet] 10 mg PO DAILY 09/27/17 Atenolol [Tenormin 50 mg Tablet] 50 mg PO DAILY 09/27/17 Hydrochlorothiazide [Hydrodiuril 25 mg Tablet] 25 mg PO DAILY 09/27/17 Lisinopril [Prinivil] 20 mg PO DAILY 09/27/17 Acetaminophen [Tylenol 325 mg Tablet] 650 mg PO Q4HP PRN tablet 09/29/17 Amoxicillin/Potassium Clav [Augmentin 500-125 Tablet] 1 each PO TID #30 tablet 09/29/17 Docusate Sodium [Colace] 100 mg PO BIDP PRN #30 capsule 09/29/17 Oxycodone HCl/Acetaminophen [Percocet 5-325 mg Tablet] 1 tab PO Q4HP PRN #20 tablet 09/29/17 History of Present Illness History of Present Illness: Per H&P by Dr. 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 Patient does not remember any injury to his involved hand. He denies fever, chills, cough, chest pain, nausea , vomiting or abdominal pain. X-ray of the left hand shows lytic lesions and new periosteal bone formation which is suspicious for osteomyelitis. Patient does not have other significant medical problems. Patient has been started empirically on vancomycin and cefepime and he will have MRI of the left hand in a am, Hospital Course Hospital Course: The patient presented with a complaint of 2 days of swelling and tenderness to the dorsal aspect of his left hand. 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 X-ray of the hand reveals dorsal half of the second metacarpal head is diffusely abnormal with lytic pattern suggestive for osteomyelitis related to a puncture wound. There is overlying soft tissue swelling without foreign body or soft tissue gas. MRI of the hand demonstrated osteomyelitis pattern of the right second metacarpal head. Blood cultures are negative at 24 and 48 hours. Wound culture is negative at 1 day. He was empirically placed on vancomycin; he did receive 1 dose of ceftriaxone while in the emergency department last night. Orthopedics was consulted and took the patient to the OR yesterday afternoon for irrigation and excisional debridement of the left second metacarpal head with excision of nonviable tissue and bone biopsy. Dr. Alvarado (orthopedics) called today to state that he did not find evidence of osteomyelitis; there was no purulent material. He felt that the bone lesion was likely related to rheumatoid arthritis or possibly gout. He recommended discharge to home on p.o. Augmentin and follow-up in his office in 7 days. As the patient remained afebrile, with a normal WBC, and negative blood cultures at 24 and 48 hours, and negative wound cultures at 1 day, he was discharged to home. He was counseled on the importance of completing his antibiotic therapy and following up as instructed. He was also advised to return to the emergency department as soon as possible for worsening erythema, edema, pain, or fever. At time of discharge, the patient is in stable condition, maintaining oxygen saturations on room air, tolerating a regular diet, and without pain. He is discharged home with a prescription for Augmentin and oxycodone. He is reminded to follow-up with his primary care provider within [address] Alvarado as scheduled. Physical Exam Vital Signs: Temp Pulse Resp BP Pulse Ox 97.7 F 69 12 143/72 H 95 09/29/17 15:43 09/29/17 15:43 09/29/17 15:43 09/29/17 15:43 09/29/17 15:43 Intake & Output 09/28/17 09/29/17 09/30/17 06:59 06:59 06:59 Intake Total 960 2586 Output Total 1010 Balance 960 1576 Weight 127.9 kg 123.8 kg General appearance: PRESENT: no acute distress, cooperative, obese, well- developed, well-nourished Head exam: PRESENT: atraumatic, normocephalic Eye exam: PRESENT: conjunctiva pink, EOMI, PERRLA. ABSENT: scleral icterus Mouth exam: PRESENT: moist, tongue midline Neck exam: ABSENT: carotid bruit, JVD, lymphadenopathy, thyromegaly Respiratory exam: PRESENT: clear to auscultation rip, symmetrical, unlabored. ABSENT: rales, rhonchi, wheezes Cardiovascular exam: PRESENT: RRR, +S1, +S2. ABSENT: diastolic murmur, rubs, systolic murmur Pulses: PRESENT: normal dorsalis pedis pul Vascular exam: PRESENT: normal capillary refill GI/Abdominal exam: PRESENT: normal bowel sounds, soft. ABSENT: distended, guarding, mass, organolmegaly, rebound, tenderness Rectal exam: PRESENT: deferred Extremities exam: PRESENT: tenderness - Tenderness and limited range of motion to left hand; especially index finger. Improved from yesterday per patient report.. ABSENT: calf tenderness, clubbing, pedal edema Neurological exam: PRESENT: alert, awake, oriented to person, oriented to place , oriented to time, oriented to situation, CN II-XII grossly intact. ABSENT: motor sensory deficit Psychiatric exam: PRESENT: appropriate affect, normal mood. ABSENT: homicidal ideation, suicidal ideation Skin exam: PRESENT: dry, warm. ABSENT: cyanosis, intact - Surgical incision not visualized; clean dry dressing in place., rash Results Laboratory Results: 09/29/17 06:02 09/29/17 06:02 09/29/17 09/29/17 09/29/17 06:02 06:02 06:02 WBC 10.1 RBC 5.02 Hgb 16.4 Hct 48.7 MCV 97 MCH 32.7 MCHC 33.7 RDW 14.3 H Plt Count 261 Sodium 137.7 Potassium 4.5 Chloride 99 Carbon Dioxide 25 Anion Gap 14 BUN 27 H Creatinine 1.35 H Est GFR ( Amer) > 60 Est GFR (Non-Af Amer) 55 L Glucose 144 H Calcium 9.7 TSH 0.53 09/28/17 17:20 Finger - Left Index Finger Gram Stain - Final Impressions: Hand X-Ray 09/27/17 15:58 IMPRESSION: Dorsal half of the 2nd metacarpal head is diffusely abnormal, with a permeative lytic pattern and adjacent periosteal new bone formation. Findings are worrisome for osteomyelitis related to puncture wound. Overlying soft tissue swelling dorsal hand without radiopaque foreign body or soft tissue gas. Upper Extremity MRI 09/27/17 18:38 IMPRESSION: Osteomyelitis pattern of the right second metacarpal head. Qualifiers - * PATIENT BEING DISCHARGED WITH ANY OF THE FOLLOWING DIAGNOSIS: No Plan Discharge Plan: Discharge to home with self-care. Follow-up with your primary care provider within 1 week. Follow-up with Dr. Alvarado as scheduled in 1 week.
[2017-09-29] MEDS ORDERED: VANCOMYCIN HCL 1,000 MG in DEXTROSE 5%-WATER 250 ML IV SCH (20:00)
== END 2017-09-29 16:30 | disposition home or self-care (01) | DRG 514 ==
LOC: ER 13:30 → EH 19:19 → 4N 20:29
PROVIDERS: ADMIT Internal Medicine; ATTEND Internal Medicine
PROC: 0PBQ0ZX Excision of Left Metacarpal, Open Approach, Diagnostic (ICD-10-PCS; principal; 2017-09-28 16:15)
DX: M06.9 Rheumatoid arthritis, unspecified (principal); M1A.9XX1 Chronic gout, unspecified, with tophus (tophi); I10 Essential (primary) hypertension; E66.9 Obesity, unspecified; Z68.37 Body mass index [BMI] 37.0-37.9, adult; F17.210 Nicotine dependence, cigarettes, uncomplicated; R73.9 Hyperglycemia, unspecified
CPT/HCPCS: 01830; 36415; 80048; 80053; 80202; 83036; 84443; 84550; 85025; 85027; 85652; 86140; 86200; 86225; 86235; 87015; 87040; 87070; 87075; 87101; 87116; 87205; 87206; 88304; 88311; 93005; 93010; 99284; 99406; J0131; J0360; J0692; J0696; J1100; J1885; J2250; J2405; J2704; J2765; J3010; J3370; J3490; J7060

== ENCOUNTER → 2017-12-31 | Outpatient (CLI) | payer OTHER ==
[2017-12-31 10:46] LABS: ABSOLUTE BASOPHILS # (AUTO) 0.1 10^3/uL (0.0-0.2); ABSOLUTE EOSINOPHILS # (AUTO) 0.2 10^3/uL (0.0-0.6); ABSOLUTE LYMPHOCYTES (AUTO) 2.1 10^3/uL (0.5-4.7); ABSOLUTE MONOCYTES (AUTO) 0.4 10^3/uL (0.1-1.4); ABSOLUTE NEUT (AUTO) 2.5 10^3/uL (1.7-8.2); BASOPHILS % (AUTO) 1.2 % (0-2); EOSINOPHILS % (AUTO) 3.3 % (0-6); HEMATOCRIT 41.7 % (37.9-51.0); HEMOGLOBIN 14.4 g/dL (13.5-17.0); LYMPHOCYTES % (AUTO) 40.7 % (13-45); MEAN CORPUSCULAR HEMOGLOBIN 32.6 pg (27.0-33.4); MEAN CORPUSCULAR HGB CONC 34.5 g/dL (32.0-36.0); MEAN CORPUSCULAR VOLUME 94 fl (80-97); MONOCYTES % (AUTO) 7.8 % (3-13); PLATELET COUNT 248 10^3/uL (150-450); RED BLOOD COUNT 4.42 10^6/uL (4.35-5.55); RED CELL DISTRIBUTION WIDTH 13.8 % (11.5-14.0); TOTAL CELLS COUNTED % (AUTO) 100 %; WHITE BLOOD COUNT 5.3 10^3/uL (4.0-10.5)
[2017-12-31 11:16] LABS: ANION GAP 12 (5-19); BLOOD UREA NITROGEN 22 mg/dL (7-20); C-REACTIVE PROTEIN 5.5 mg/L (<10.0); CALCIUM 9.8 mg/dL (8.4-10.2); CARBON DIOXIDE 26 mmol/L (22-30); CHLORIDE 106 mmol/L (98-107); GLUCOSE 103 mg/dL (75-110); POTASSIUM 4.4 mmol/L (3.6-5.0)
[2017-12-31 11:26] LABS: ERYTHROCYTE SEDIMENTATION RATE 16 mm/hr (0-20)
[2018-01-02 11:26] LABS: CYCLIC CITRUL PEPTIDE IGG/A AB 13 units (0-19)
== END ==
LOC: CCC 10:04
DX: M25.442 Effusion, left hand (principal); R73.03 Prediabetes
CPT/HCPCS: 36415; 80048; 82306; 83735; 84100; 85025; 85652; 86038; 86140; 86200; 86430

== ENCOUNTER → 2018-03-04 | Outpatient (CLI) | payer OTHER | LOC: CCC 07:13 | DX: M79.89 Other specified soft tissue disorders (principal) | CPT/HCPCS: 36415; 84550 ==

== ENCOUNTER → 2018-03-18 | Outpatient (CLI) | payer OTHER ==
[2018-03-18 17:24] LABS: ANION GAP 12 (5-19); BLOOD UREA NITROGEN 22 mg/dL (7-20); CALCIUM 9.5 mg/dL (8.4-10.2); CARBON DIOXIDE 27 mmol/L (22-30); CHLORIDE 105 mmol/L (98-107); GLUCOSE 92 mg/dL (75-110); PHOSPHORUS 4.5 mg/dL (2.5-4.5); POTASSIUM 4.3 mmol/L (3.6-5.0); SODIUM 143.7 mmol/L (137-145); URIC ACID 7.2 mg/dL (3.5-8.5)
== END ==
LOC: OD 15:36
DX: N18.9 Chronic kidney disease, unspecified (principal); M25.9 Joint disorder, unspecified; I27.20 Pulmonary hypertension, unspecified; I12.9 Hypertensive chronic kidney disease with stage 1 through stage 4 chronic kidney disease, or unspecified chronic kidney disease; R22.43 Localized swelling, mass and lump, lower limb, bilateral
CPT/HCPCS: 36415; 80048; 83735; 84100; 84550